=== PATIENT | male | born 1995 | race Caucasian/White ===

== ENCOUNTER 2020-12-18 16:36 | Emergency (ER) | payer OTHER ==
[~2020-12-18] VITALS: Ht 177.8 cm; Wt 72.4 kg
[2020-12-18 16:54] VITALS: BP 132/75
--- NOTE | 2020-12-18 17:08 | RAD ---
Left wrist 3 views. HISTORY: Left wrist injury after a fall 3 views were taken of the left wrist. There is not evidence of an acute fracture or osseous abnormali ty. IMPRESSION: 1. Negative left wrist. Electronically signed by: Salomón Garnett MD (12/18/2020 5:06 PM) [id number]
[2020-12-18] MEDS ORDERED: IBUP600T16 PO (17:26)
--- NOTE | 2020-12-18 17:26 | PHYS DOC ---
Past History Past Medical History: Other Past Surgical History: Other Alcohol Use: Occasionally Drug Use: None Adult General Chief Complaint Chief Complaint: WRIST PAIN HPI HPI Patient is a 24-year-old male presents emergency department reporting at approximately 1530 today he was walking down the steps while texting on his phone when he missed the final step and stumbled forward falling and catching himself with his left hand. Patient reports left wrist pain, states he took 600 mg of Advil at 4 PM. Patient reports a 5/10 pain with a 10 pain scale. Patient denies any other physical complaints or physical injuries. Patient denies any numbness or tingling to his hand. Patient denies any swelling to the wrist. Patient denies allergies to medications, states he takes Adderall for ADHD, states he sees Dr. Andrade Wharton for primary care. Review of Systems Review of Systems 14 body systems of review of systems have been reviewed. See HPI for pertinent positives and negative responses, otherwise all other systems are negative, nonpertinent or noncontributory. Allergies Allergies Allergies Coded Allergies Type Severity Reaction Last Updated Verified No Known Drug Allergies 08/15/15 No Physical Exam Physical Exam Constitutional: Well developed, well nourished, no acute distress, non-toxic appearance. 24-year-old male no apparent distress. HENT: Normocephalic, atraumatic, bilateral external ears normal, oropharynx moist, no oral exudates, nose normal. Eyes: PERRLA, EOMI, conjunctiva normal, no discharge. Neck: Normal range of motion, no tenderness, supple, no stridor. Cardiovascular:Heart rate regular rhythm, no murmur Lungs & Thorax: Bilateral breath sounds clear to auscultation Abdomen: Bowel sounds normal, soft, no tenderness, no masses, no pulsatile masses. Skin: Warm, dry, no erythema, no rash. Back: No tenderness, no CVA tenderness. Extremities: No tenderness, no cyanosis, no clubbing, ROM intact, no edema. Except for left wrist, patient complains of pain with passive range of motion, distal cap refill less than 2 seconds, no deformity appreciated, no crepitus appreciated, 2+ radial pulse, no swelling or ecchymosis appreciated, there are no contusions or hematomas appreciated. Neurologic: Alert and oriented X 3, normal motor function, normal sensory function, no focal deficits noted. Psychologic: Affect normal, judgement normal, mood normal. Current Patient Data Vital Signs Vital Signs Date Time Temp Pulse Resp B/P (MAP) Pulse Ox O2 Delivery O2 Flow Rate FiO2 12/18/20 16:54 77 18 132/75 (94) 99 EKG EKG [] Radiology/Procedures Radiology/Procedures PATIENT: KERRY WALLERCCOUNT: [id number] : 1995 LOCATION: ER AGE: 24 SEX: M EXAM STATUS: REG ER ORD. PHYSICIAN: UVALDO BOONE APRN REASON: wrist injury s/p fall today PROCEDURE: WRIST 3V LEFT Left wrist 3 views. HISTORY: Left wrist injury after a fall 3 views were taken of the left wrist. There is not evidence of an acute fracture or osseous abnormality. IMPRESSION: 1. Negative left wrist. Electronically signed by: Salomón Garnett MD (12/18/2020 5:06 PM) [id number] DICTATED AND SIGNED BY: SALOMÓN GARNETT MD DATE: 12/18/201703 CC: UVALDO BOONE APRN; EMERGENCY,DEPARTMENT; CANDACE WHARTON MD ~MTH0 0 Heart Score C/O Chest Pain: No Risk Factors: Risk Factors: DM, Current or recent (<one month) smoker, HTN, HLP, family history of CAD, obesity. Risk Scores: Risk Factors: DM, Current or recent (<one month) smoker, HTN, HLP, family histo ry of CAD, obesity. Course & Med Decision Making Course & Med Decision Making Pertinent Labs and Imaging studies reviewed. (See chart for details) 24-year-old male, vital signs reviewed, resents emergency department complaining of left wrist pain after a stumble and fall which she caught his fall with his left hand. Physical examination concerning for left wrist bony fracture versus sprain, will order x-ray imaging. Patient states he does not need anything for pain as he recently took Motrin and it does not hurt that bad at this time. Ice packs ordered. X-ray imaging negative for acute fracture, discussed findings with patient, discussed will apply Jonathan wrap and Velcro wrist splint for comfort, discussed follow-up with primary care soon for ongoing pain, will give work excuse for tomorrow, patient states he does not think he needs it but will accept it just in case he is hurting. Discussed with patient using [id number] Tylenol or Motrin for pain, RICE therapy. Patient gave verbal understanding discharge home instructions, follow-up with PCP, return to ER precautions or concerns, JONATHAN, splint, RICE therapy use, patient has no further questions or concerns, discharged home without incident. Diagnosis left wrist sprain. Dragon Disclaimer Dragon Disclaimer This electronic medical record was generated, in whole or in part, using a voice recognition dictation system. Departure Departure: Impression: Primary Impression: Left wrist sprain Disposition: HOME / SELF CARE / HOMELESS Condition: GOOD Referrals: CANDACE WHARTON MD (PCP) Patient Instructions: Elastic Bandage and RICE, Wrist Sprain with Rehab- [facility] Additional Instructions: You are seen today in the emergency department for left wrist pain after a fall. An x-ray was performed did not show any fracture. Your symptoms are consistent with a wrist sprain. I am placed in a Jonathan wrap and Velcro wrist splint for comfort. Please ice and elevate as we discussed. Follow-up with your primary care physician for ongoing pain and discomfort. [facility] for worsening symptoms or other concerns. EMERGENCY DEPARTMENT GENERAL DISCHARGE INSTRUCTIONS Thank you for coming to [facility] (ED) today and trusting us with you care. We trust that you had a positivie experience in our Emergency Department. If you wish to speak to the department management, you may call the director at [phone]. YOUR FOLLOW UP INSTRUCTIONS ARE FOLLOWS: 1. Do you have a private Doctor? If you do not have a private doctor, please ask for a resource list of physicians or clinics that may be able to assist you with follow up care. 2. The Emergency Physician has interpreted your x-rays. The X-Ray specialist will also review them. If there is a change in the findings, you will be notified in 48 hours when at all possible. 3. A lab test or culture has been done, your results will be reviewed and you will be notified if you need a change in treatment. ADDITIONAL INSTRUCTIONS AND INFORMATION: 1. Your care today has been supervised by a physician who is specially trained in emergency care. Many problems require more than one evaluation for a complete diagnosis and treatment. We recommend that you schedule your follow up appointment as recommended to ensure complete treatment of you illness or injury. If you are unable to obtain follow up care and continue to have a problem, or if your condition worsens, we recommend that you return to the ED. 2. We are not able to safely determine your condition over the phone nor are we able to give sound medical advice over the phone. For these safety reasons, if you call for medical advice we will ask you to come to the ED for further evaluation. 3. If you have any questions regarding these discharge instructions please call the ED at [phone]. SAFETY INFORMATION: In the interest of safety, wellness, and injury prevention; we encourage you to wear your sealbelt, if you smoke; quite smoking, and we encourage family to use a protective helmet for bicycling and other sporting events that present an increased risk for head injury. IF YOUR SYMPTOMS WORSEN OR NEW SYMPTOMS DEVELOP, OR YOU HAVE CONCERNS ABOUT YOUR CONDITION; OR IF YOUR CONDITION WORSENS WHILE YOU ARE WAITING FOR YOUR FOLLOW UP APPOINTMENT; EITHER CONTACT YOUR PRIMARY CARE DOCTOR, THE PHYSICIAN WHOSE NAME AND NUMBER YOU WERE GIVEN, OR RETURN TO THE ED IMMEDIATELY. Scripts Ibuprofen (IBUPROFEN) 600 Mg Tablet 600 MG PO TID PRN PRN for PAIN, #30 TAB 0 Refills Prov: UVALDO BOONE APRN 12/18/20 Problem Qualifiers Primary Impression: Left wrist sprain Encounter type: initial encounter Qualified Codes: S63.502A - Unspecified sprain of left wrist, initial encounter UVALDO BOONE APRN Dec 18, 2020 17:26
== END 2020-12-18 17:43 | disposition home or self-care (01) ==
LOC: ER 16:36
DX: S63.502A Unspecified sprain of left wrist, initial encounter (principal); W18.39XA Other fall on same level, initial encounter; Y93.01 Activity, walking, marching and hiking; Y92.89 Other specified places as the place of occurrence of the external cause; Y99.8 Other external cause status
CPT/HCPCS: 29125; 73110; 99283-25

== ENCOUNTER → 2021-06-26 | Outpatient (CLI) | payer SELFPAY ==
[~2021-06-26] MED LIST: IBUP600T16 PO
--- NOTE | 2021-06-26 13:34 | RAD ---
Site ID: [id number] EXAMINATION: XR EXAM OF ANKLE_RIGHT 3VIEWS. HISTORY: 25 years Male Reason: FALL OFF LADDER TUESDAY, RIGHT ANKLE PAIN, BRUISING COMPARISON: None. FINDINGS: No fracture, dislocation or radiopaque foreign body. The joint spaces and articular surfaces appea r unremarkable. IMPRESSION: Unremarkable exam. Electronically signed by: Byron Pruett MD (06/26/2021 1:31 PM) [id number]
== END ==
LOC: RAD 12:54
PROVIDERS: ATTEND Nurse Practitioner Family
DX: S99.911A Unspecified injury of right ankle, initial encounter (principal); X58.XXXA Exposure to other specified factors, initial encounter; Y93.89 Activity, other specified; Y92.89 Other specified places as the place of occurrence of the external cause; Y99.8 Other external cause status
CPT/HCPCS: 73610